=== PATIENT | male | born 1990 | race Caucasian/White ===

== ENCOUNTER 2016-07-01 02:56 | Emergency (ER) | payer OTHER ==
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
[2016-07-01 03:01] VITALS: BP 137/78; PULSE 82; TEMP 97.5; BMI 21.2
[2016-07-01] MEDS ORDERED: KETOROLAC TROMETHAMINE 60 MG/2 ML VIAL IM ONE (03:12)
[2016-07-01] MEDS ORDERED: KETOROLAC TROMETHAMINE 60 MG/2 ML VIAL ONE (03:13)
== END 2016-07-01 05:02 | disposition home or self-care (01) ==
LOC: EDSEX → FER 02:56
PROC: 3E0233Z Introduction of Anti-inflammatory into Muscle, Percutaneous Approach (ICD-10-PCS; principal; 2016-07-01)
DX: I86.1 Scrotal varices (principal); Z87.828 Personal history of other (healed) physical injury and trauma
CPT/HCPCS: 76870-TC; 96372; 99281-25

== ENCOUNTER 2016-07-03 15:38 | Emergency (ER) | payer OTHER ==
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
[2016-07-03] MEDS ORDERED: OXYCODONE/APAP 5/325MG COMBO TABLET PO ONE (16:08)
[2016-07-03] MEDS ORDERED: OXYCODONE/APAP 5/325MG COMBO TABLET ONE (16:16)
[2016-07-03 16:30] LABS: PH,URINE 5.5 (4.5-8); URINE APPEARANCE Clear; URINE BILIRUBIN Negative (NEGATIVE); URINE BLOOD Negative (NEGATIVE); URINE GLUCOSE (UA) Negative (NEGATIVE); URINE KETONE Negative (NEGATIVE); URINE LEUK ESTERASE Negative (NEGATIVE); URINE NITRITE Negative (NEGATIVE); URINE PROTEIN Trace (NEGATIVE); URINE UROBILINOGEN 0.2 E.U/dl (0.2-1.0)
[2016-07-03 16:37] LABS: URINE COLOR YELLOW
[2016-07-03 16:38] VITALS: BP 141/81; PULSE 82; TEMP 98.1; BMI 21.2
== END 2016-07-03 18:42 | disposition home or self-care (01) ==
LOC: FER 15:38
DX: N50.812 Left testicular pain (principal)
CPT/HCPCS: 76870-TC; 81003; 99281-25

== ENCOUNTER 2016-12-11 19:15 | Emergency (ER) | payer OTHER ==
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
[2016-12-11 19:24] VITALS: BP 134/75; PULSE 90; TEMP 98.4; BMI 28.1
[2016-12-11] MEDS ORDERED: LORazepam 1 MG TABLET PO ONE (19:49)
[2016-12-11] MEDS ORDERED: KETOROLAC TROMETHAMINE 60 MG/2 ML VIAL IM ONE (19:49)
[2016-12-11] MEDS ORDERED: LORazepam 0.5 MG TABLET ONE (19:53)
[2016-12-11] MEDS ORDERED: KETOROLAC TROMETHAMINE 60 MG/2 ML VIAL ONE (19:53)
== END 2016-12-11 20:31 | disposition home or self-care (01) ==
LOC: FER 19:15
PROC: 3E0233Z Introduction of Anti-inflammatory into Muscle, Percutaneous Approach (ICD-10-PCS; principal; 2016-12-11)
DX: N50.812 Left testicular pain (principal)
CPT/HCPCS: 96372; 99281-25

== ENCOUNTER 2016-12-13 22:44 | Emergency (ER) | payer OTHER ==
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
[2016-12-13 22:58] VITALS: TEMP 99.5; BMI 21.2
[2016-12-13] MEDS ORDERED: LORazepam 1 MG TABLET PO ONE (23:06)
[2016-12-13 23:11] LABS: PH,URINE 7.5 (4.5-8); URINE APPEARANCE Clear; URINE BILIRUBIN Negative (NEGATIVE); URINE BLOOD Negative (NEGATIVE); URINE GLUCOSE (UA) Negative (NEGATIVE); URINE KETONE Negative (NEGATIVE); URINE NITRITE Negative (NEGATIVE); URINE PROTEIN Negative (NEGATIVE); URINE UROBILINOGEN 0.2 (0.2-1.0)
[2016-12-13 23:12] LABS: URINE COLOR YELLOW; URINE LEUK ESTERASE NEGATIVE (NEGATIVE)
[2016-12-13] MEDS ORDERED: KETOROLAC TROMETHAMINE 60 MG/2 ML VIAL IM ONE (23:31)
[2016-12-13] MEDS ORDERED: KETOROLAC TROMETHAMINE 60 MG/2 ML VIAL ONE (23:33)
[2016-12-14 00:18] VITALS: BP 120/70; PULSE 95
== END 2016-12-14 00:26 | disposition home or self-care (01) ==
LOC: FER 22:44
PROC: 3E0233Z Introduction of Anti-inflammatory into Muscle, Percutaneous Approach (ICD-10-PCS; principal; 2016-12-13)
DX: N50.812 Left testicular pain (principal); F41.0 Panic disorder [episodic paroxysmal anxiety]
CPT/HCPCS: 81003; 96372; 99281-25

== ENCOUNTER 2018-05-10 08:48 | Emergency (ER) | payer OTHER ==
[2018-05-10 09:04] VITALS: TEMP 97.6; BMI 21.2
[2018-05-10 09:42] LABS: URINE BILIRUBIN 1+ (NEGATIVE); URINE GLUCOSE (UA) Negative (NEGATIVE); URINE KETONE 3+ (NEGATIVE); URINE LEUK ESTERASE Negative (NEGATIVE); URINE NITRITE Negative (NEGATIVE); URINE PROTEIN Negative (NEGATIVE); URINE UROBILINOGEN 0.2 (0.2-1.0)
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
[2018-05-10 09:53] LABS: BASO % 0.6 % (0-2.0); HEMOGLOBIN 14.2 GM/dl (11.7-16.9); LYMPH % 37.5 % (8-40); MCH 27.6 pg (25.7-33.7); MCHC 32.9 g/dl (32.0-35.9); MEAN CELL VOLUME 83.8 fl (80-96); MEAN PLT VOLUME 7.9 fl (7.5-11.1); MONO % 7.5 % (3.8-10.2); NEUT % 50.4 % (42.8-82.8); PLATELET COUNT 218 K/MM3 (134-434); RBC 5.13 M/mm3 (4.00-5.60); RDW 12.8 % (11.9-15.9); WHITE BLOOD COUNT 4.3 K/mm3 (4.0-10.8)
[2018-05-10] MEDS ORDERED: KETOROLAC TROMETHAMINE 30 MG/1 ML VIAL IM ONE (09:55)
[2018-05-10] MEDS ORDERED: ACETAMINOPHEN 325 MG TABLET (FP) PO ONE (09:55)
[2018-05-10 09:56] LABS: ALBUMIN 4.6 g/dl (3.4-5.0); ALK PHOS 45 U/L (45-117); ANION GAP 12 MMOL/L (8-16); BILIRUBIN,TOTAL 1.1 mg/dl (0.2-1); BLOOD UREA NITROGEN 17 mg/dl (7-18); CALCIUM 9.4 mg/dl (8.5-10); CHLORIDE 104 mmol/L (98-107); CO2 22 mmol/L (21-32); GLUCOSE,RANDOM 135 mg/dl (74-106); POTASSIUM 3.5 mmol/L (3.5-5.1); SGOT/AST 18 U/L (15-37); SGPT/ALT 13 U/L (13-61); SODIUM 138 mmol/L (136-145); TOT PROT 7.6 g/dl (6.4-8.2)
[2018-05-10] MEDS ORDERED: KETOROLAC TROMETHAMINE 30 MG/1 ML VIAL ONE (10:21)
[2018-05-10] MEDS ORDERED: ACETAMINOPHEN 325 MG TABLET (FP) ONE (10:21)
[2018-05-10 10:59] LABS: COCAINE, UR NEGATIVE ng/ml (CUTOFF=300); METHADONE, UR NEGATIVE ng/ml (CUTOFF=300); OPIATES, URI NEGATIVE ng/ml (CUTOFF=300); PHENCYCLIDINE,URINE NEGATIVE ng/ml (CUTOFF=25); URINE AMPHETAMINES NEGATIVE ng/ml (CUTOFF=500); URINE BARBITURATES NEGATIVE ng/ml (CUTOFF=200); URINE BENZODIAZEPINES NEGATIVE ng/ml (CUTOFF=200)
[2018-05-10 11:55] VITALS: BP 125/73; PULSE 99
[2018-05-10 17:38] LABS: URINE APPEARANCE Not; URINE COLOR Not
== END 2018-05-10 12:06 | disposition home or self-care (01) ==
LOC: FER 08:48
PROC: 3E0233Z Introduction of Anti-inflammatory into Muscle, Percutaneous Approach (ICD-10-PCS; principal; 2018-05-10)
PROC: 3E023NZ Introduction of Analgesics, Hypnotics, Sedatives into Muscle, Percutaneous Approach (ICD-10-PCS; 2018-05-10)
DX: N50.811 Right testicular pain (principal); F41.0 Panic disorder [episodic paroxysmal anxiety]
CPT/HCPCS: 36415; 76775-TC; 76870-TC; 80053; 80307; 81003; 85025; 87491; 87591; 99282-25